=== PATIENT | female | born 1985 | race Caucasian/White ===

== ENCOUNTER → 2020-07-04 | Outpatient (CLI) | payer SELFPAY | END | disposition home or self-care (01) | LOC: LABWHC1 12:13 | PROVIDERS: ATTEND Emergency Medicine | DX: Z20.828 Contact with and (suspected) exposure to other viral communicable diseases (principal) | CPT/HCPCS: U0003; C9803 ==

== ENCOUNTER 2021-12-21 12:53 | Day surgery (SDC) | payer BC ==
[2021-12-20 09:07] VITALS: BMI 40.3
--- NOTE | 2021-12-21 05:26 | HP ---
HISTORY AND PHYSICAL CHIEF COMPLAINT: Lesion of the anterior tongue. HISTORY OF PRESENT ILLNESS: The patient is a 36-year-old female who was recently referred to my office for evaluation of a lesion on her tongue. The patient states that she is not how quite sure how long it has been present. It was discovered by her dentist and he recommended the biopsy. She has a long history of anxiety and is currently is on medication for that disorder. The patient states that the area does not hurt or bleed. At the time that she is seen in my office, clinical examination of the oropharynx revealed the patient had a lesion on anterior tip of the tongue which is approximately 4 mm in size. It was quite sessile. No other suspicious lesions were noted of the oropharynx. It was recommend the patient undergo excision of this lesion of anterior tongue under general anesthesia. PAST MEDICAL HISTORY: Past medical history reveals patient has no known allergies to medications. MEDICATIONS: Current medications include Celexa, Synthroid, and Xanax. REVIEW OF SYSTEMS: Reveals that the metabolic endocrine system is positive for hypothyroidism. The remainder review of systems is essentially unremarkable. PREVIOUS SURGERIES: Previous surgeries include a total thyroidectomy for cancer. PHYSICAL EXAMINATION: This patient is a pleasant 36-year-old female who is alert and cooperative. HEENT examination: Patient is normocephalic. Tympanic membranes are normal. Middle ear space is free of any fluid or infection. Pupils equal, round, react to light and accommodation. Extraocular movements within normal limits. Intranasal examination reveals moderate septal deviation with compensatory hypertrophy of inferior turbinates. Moderate amount of mucus membranes and draining down the posterior pharynx. Examination of oropharynx reveals that the anterior top anterior tip of the tongue has a 4 mm lesion which appears to be quite sessile/pedunculated. The remainder of the head and neck exam is unremarkable. CHEST/CARDIOVASCULAR: Both lung benítez are clear to percussion and auscultation. The patient is in regular sinus rhythm. S1 and S2 are present. No murmurs S3s or S4s. Peripheral pulses are bilaterally symmetrical and within normal limits. ABDOMEN: There is no evidence any masses, megaly or tenderness. Abdomen: Soft. SKIN is unremarkable. MUSCULOSKELETAL and NEUROLOGICAL are within normal limits. PELVIC/RECTAL EXAMINATION: Pelvic rectal exam is deferred at this time because the patient has this done on a regular basis at her family physician's office. IMPRESSION: Lesion of anterior tip of the tongue. PLAN: The patient is scheduled to undergo excision of lesion of the anterior tip of the tongue under general anesthesia. Attention RNs in the pre-surgical area, I have not ordered any pre-surgical prophylactic antibiotics for this patient. If the pharmacy department sends any pre- surgical prophylactic oral prophylactic antibiotics to the pre-surgical area for this patient, please cancel that order and return the medication to pharmacy. Also make sure that the patient's account is credited appropriately. I have ordered for this patient to receive 1000 mg of Ofirmev IV, to be used to be given once an intravenous line has been established. I have discussed the risks, benefits and alternative therapies for the above-mentioned procedure and for both sedation/analgesia as well as necessary blood product administration, if indicated, as they pertain to this patient. The patient has indicated his or her understanding and acceptance of the risks and procedures discussed. MMSIMEONL / FABRICION: [id number] /
[~2021-12-21 12:53] MED LIST: Pre Op ABX Message 1 EACH MISC MISCELLANE ONE
[2021-12-21] MEDS ORDERED: MIDAZOLAM 2 MG/2 ML VIAL IV PRN (13:09)
[2021-12-21] MEDS ORDERED: ONDANSETRON 4 MG/2 ML VIAL IVP ONE (13:09)
[2021-12-21] MEDS ORDERED: DEXAMETHASONE SOD PHOSPHATE 4 MG/ML 1 ML VIAL IV ONE (13:09)
[2021-12-21] MEDS ORDERED: SCOPOLAMINE 1.5MG/72HR PATCH TRANSDERM ONE (13:09)
[2021-12-21] MEDS ORDERED: LACTATED RINGERS 1,000 ML IV SCH (13:09)
[2021-12-21] MEDS ORDERED: HYDROmorphone 0.5 MG/0.5 ML SYRINGE IVP PRN (13:09)
[2021-12-21] MEDS ORDERED: ACETAMINOPHEN IV (For NPO) 1,000 MG in EMPTY BAG 1 BAG IVPB ONE (14:00)
[2021-12-21] MEDS ORDERED: DEXAMETHASONE SOD PHOSPHATE 10 MG/ML 1 ML VIAL ONE (14:12)
[2021-12-21] MEDS ORDERED: ePHEDrine 50 MG/ML 1 ML VIAL ONE (14:12)
[2021-12-21] MEDS ORDERED: fentaNYL (PF) 50 MCG/ML 2 ML AMP ONE (14:12)
[2021-12-21] MEDS ORDERED: SUCCINYLCHOLINE CHLORIDE VIAL 200 MG/10 ML VIAL IV ONE (14:12)
[2021-12-21] MEDS ORDERED: LIDOCAINE 1% INJ 10MG/ML (20 ML MDV) ONE (14:12)
[2021-12-21] MEDS ORDERED: GLYCOPYRROLATE 0.2 MG/ML 2 ML VIAL ONE (14:12)
[2021-12-21] MEDS ORDERED: MIDAZOLAM 2 MG/2 ML VIAL ONE (14:12)
[2021-12-21] MEDS ORDERED: NEOSTIGMINE 1 MG/ML 10 ML VIAL ONE (14:12)
[2021-12-21] MEDS ORDERED: PROPOFOL 10 MG/ML 20 ML VIAL IV ONE (14:12)
[2021-12-21] MEDS ORDERED: ROCURONIUM 10 MG/ML (5 ML VIAL) IV ONE (14:12)
[2021-12-21 15:18] VITALS: TEMP 97.1
[2021-12-21 16:39] VITALS: BP 124/72; PULSE 88; RESP 20
--- NOTE | 2021-12-23 19:58 | OP ---
OPERATIVE REPORT DATE OF SURGERY: 12/21/2021 PREOPERATIVE DIAGNOSIS: Lesion measuring 4 to 5 mm of the anterior tip of the tongue. POSTOPERATIVE DIAGNOSIS: Lesion measuring 4 to 5 mm of the anterior tip of the tongue. Final pathology is pending. ANESTHESIA: General. OPERATIVE PROCEDURE: Excisional biopsy of 4-5 mm lesion of the anterior tongue. OPERATING SURGEON: Dr. Becker. COMPLICATIONS: None. ESTIMATED BLOOD LOSS: Less than 3 mL. OPERATIVE PROCEDURE DESCRIPTION: The patient was placed on the operative table in supine position. After uneventful induction and endotracheal intubation, satisfactory general anesthesia was obtained. Next, the patient's mouth was expanded using a dental bite block which was placed in the left buccal corner. Following this, the patient's tongue was grasped with a towel clip and pulled anteriorly, thus exposing the suspicious lesion. Next using a #15 scalpel the lesion was excised in a V-shaped manner, with the entire specimen being sent in formalin to Pathology for permanent sectioning. Because of the manner in which the incision was made, the edges of the incision seem to close nicely without any suturing. Therefore the area was cauterized but was not sutured. Estimated blood loss was less than 3 mL. At this point, the procedure was terminated. There were no intraoperative complications. The patient tolerated the procedure well and was returned to the recovery room in satisfactory condition. Final pathology is pending. MMODL / IJN: [id number] /
== END 2021-12-21 16:30 | disposition home or self-care (01) ==
LOC: OR 12:53
PROVIDERS: ATTEND Otolaryngology
DX: Z79.890 Hormone replacement therapy (principal); D10.1 Benign neoplasm of tongue; F41.9 Anxiety disorder, unspecified; E03.9 Hypothyroidism, unspecified; Z79.899 Other long term (current) drug therapy; J34.2 Deviated nasal septum; J34.3 Hypertrophy of nasal turbinates
CPT/HCPCS: 81025; 88305; 41112; J2250; J0330; J1100 ×2; J2710; J2405; J2001; J3010; J0131; J2704; J1170

== ENCOUNTER → 2022-05-09 | Outpatient (CLI) | payer BC ==
--- NOTE | 2022-05-10 07:27 | US ---
EXAMINATION TYPE: Transabdominal DATE OF EXAM: 05/09/2022 3:50 PM COMPARISON: NONE CLINICAL HISTORY: O36.80X0 W INCONCLUSIVE VIABILITY,. EXAM PERFORMED: EXAM MEASUREMENTS: GESTATIONAL AGE / DATING Physician Established: Not yet established Dates by LMP: (7 weeks/1 days) EDC: 03-20-23 Dates by First Scan: No previous this is first scan Dates by Current Scan for: ( 7 weeks/3 days) EDC: 03-18-23 MATERNAL ANATOMY Uterus: 8.3 x 4.4 x 4.9cm Right Ovary: obscured by overlying bowel gas Left Ovary: obscured by overlying bowel gas Post CDS / Adnexa: wnl Presence of free fluid: no Presence of corpus luteal cyst: no Presence of subchorionic bleed: no GESTATION / SURVEY CRL: 1.1cm ( 7 weeks/3 days) Yolk Sac (normal less than 6mm): 3mm Heart Rate: 155 bpm Rhythm: Normal IUP: Viable IUP Age Appropriate Anatomy Cord Insertion: Too early to visualize Limbs: Too early to visualize Calvarium: Too early to visualize Date of LMP: 03-20-22 Beta HcG (if available): Not available at this time IMPRESSION: Single viable intrauterine .
== END | disposition home or self-care (01) ==
LOC: RADUSWWP 15:22
PROVIDERS: ATTEND Obstetrics & Gynecology Obstetrics
DX: O36.80X0 Pregnancy with inconclusive fetal viability, not applicable or unspecified (principal); Z3A.01 Less than 8 weeks gestation of pregnancy
CPT/HCPCS: 76801; 76817

== ENCOUNTER → 2022-05-30 | Outpatient (CLI) | payer BC ==
[2022-05-30 22:52] LABS: Basophils # (A) 0.06 X 10*3/uL (0.00-0.10); Basophils % (A) 1.1 %; Eosinophils # (A) 0.13 X 10*3/uL (0.04-0.35); Eosinophils % (A) 2.4 %; HCT 36.5 % (37.2-46.3); HGB 11.7 g/dL (12.0-15.0); Immature Grans, Automated 0.2 %; Lymphocytes # (A) 2.42 X 10*3/uL (0.90-5.00); Lymphocytes % (A) 44.1 %; MCH 27.7 pg (27.0-32.0); MCHC 32.1 g/dL (32.0-37.0); MCV 86.5 fL (80.0-97.0); Monocytes % (A) 7.3 %; NRBC Per 100 WBC 0 /100 WBCS (0.0-0.0); Neutrophils # (A) 2.47 X 10*3/uL (1.80-7.70); Neutrophils % (A) 44.9 %; Platelet Count 269 X 10*3/uL (140-440); RBC 4.22 X 10*6/uL (4.10-5.20); RDW 14.7 % (11.5-14.5); WBC 5.49 X 10*3/uL (4.50-10.00)
[2022-05-31 01:19] LABS: Hepatitis B Surface Antigen Nonreactive (Nonreactive)
== END | disposition home or self-care (01) ==
LOC: LABWHC1 14:45
PROVIDERS: ATTEND Obstetrics & Gynecology Obstetrics
DX: Z34.90 Encounter for supervision of normal pregnancy, unspecified, unspecified trimester (principal); Z53.21 Procedure and treatment not carried out due to patient leaving prior to being seen by health care provider; Z3A.00 Weeks of gestation of pregnancy not specified
CPT/HCPCS: 36415; 82950; 85025; 86762; 86780; 86850; 86900; 86901; 87340

== ENCOUNTER 2022-12-10 11:07 | Outpatient (CLI) | payer BC ==
[2022-12-10 11:45] LABS: Glucose,Whole Blood 87 mg/dL (70-110)
[2022-12-10 13:07] VITALS: BP 134/76; PULSE 101; RESP 16; TEMP 98
== END 2022-12-10 12:52 | disposition home or self-care (01) ==
LOC: FBPOP 11:07
PROVIDERS: ATTEND Obstetrics & Gynecology Obstetrics
DX: Z53.9 Procedure and treatment not carried out, unspecified reason (principal)
CPT/HCPCS: 59025; 99213

== ENCOUNTER → 2023-01-21 | Outpatient (CLI) | payer BC ==
[2023-01-21 15:15] LABS: Glucose 2 Hour 79 mg/dL
== END | disposition home or self-care (01) ==
LOC: LABWHC1 11:41
PROVIDERS: ATTEND Obstetrics & Gynecology Obstetrics
DX: O24.419 Gestational diabetes mellitus in pregnancy, unspecified control (principal); Z3A.00 Weeks of gestation of pregnancy not specified
CPT/HCPCS: 36415; 82947; 82950; 83036

== ENCOUNTER → 2023-04-28 | Outpatient (CLI) | payer BC ==
--- NOTE | 2023-04-29 07:53 | US ---
EXAMINATION TYPE: US thyroid st tissue head/neck DATE OF EXAM: 04/28/2023 COMPARISON: US 2016 CLINICAL INDICATION: Female, 37 years old with history of C73; Thyroid cancer/ thyroidectomy GLAND SIZE: Right Lobe: Surgically absent Left Lobe: Surgically absent Isthmus Thickness: Surgically absent Bilateral neck scanned, no evidence of lymphadenopathy. No evidence of residual thyroid tissue visual ized. IMPRESSION: Status post thyroidectomy. No evidence for lymphadenopathy or residual thyroid tissue. No masses.
== END | disposition home or self-care (01) ==
LOC: RADUSWWP 15:40
PROVIDERS: ATTEND Family Medicine
DX: C73 Malignant neoplasm of thyroid gland (principal); E89.0 Postprocedural hypothyroidism
CPT/HCPCS: 76536

== ENCOUNTER → 2024-03-31 | Outpatient (CLI) | payer BC ==
--- NOTE | 2024-04-01 08:07 | XR ---
EXAMINATION TYPE: XR abdomen complete w decub DATE OF EXAM: 03/31/2024 HISTORY: Pain. Technique: 4 views of the abdomen are submitted. Comparison: None. Findings: There is no convincing evidence of pneumoperitoneum. The Bowel gas pattern is nonspecific and nonobstructive. No sizable air-fluid levels are seen. No mass effects are noted. No renal calcifications are identified. IMPRESSION: 1. Nonspecific nonobstructive bowel gas pattern
== END | disposition home or self-care (01) ==
LOC: RADXRMAIN 16:03
PROVIDERS: ATTEND Surgery
DX: R10.13 Epigastric pain (principal)
CPT/HCPCS: 74021